=== PATIENT | male | born 1960 | race Two or more races ===

== ENCOUNTER 2017-08-29 14:17 | Day surgery (SDC) | payer OTHER ==
[2017-08-29] MEDS ORDERED: POLYMYXIN/BACITRACIN 1L IRRIG (14:43)
[2017-08-29] MEDS ORDERED: LIDOCAINE 1%/EPI 30 ML INJ (16:08)
[2017-08-29] MEDS ORDERED: CEFAZOLIN 2 GM/50 ML (PMX) 50 ML IVPB (16:08)
[2017-08-29] MEDS ORDERED: HEPARIN 1000 UNITS/ML 10 ML INJ (16:14)
[2017-08-29] MEDS ORDERED: FENTAnyl 50 MCG/ML VIAL (16:15)
[2017-08-29] MEDS ORDERED: MIDAZOLAM 1 MG/ML 2 ML INJ (16:15)
== END 2017-08-29 17:30 | disposition home or self-care (01) ==
LOC: CCL 14:17
DX: C16.9 Malignant neoplasm of stomach, unspecified (principal)
CPT/HCPCS: 36558; 76937